=== PATIENT | male | born 1995 | race Two or more races ===

== ENCOUNTER 2019-06-12 22:11 | Emergency (ER) | payer OTHER ==
[~2019-06-12] VITALS: Ht 172.7 cm; Wt 99.8 kg
--- NOTE | 2019-06-12 22:45 | NUR ---
[employer] at bedside.
--- NOTE | 2019-06-13 00:05 | NUR ---
Dr. Barrow at bedside for MSE.
[2019-06-13] MEDS ORDERED: TDAP DIPH,PERTUSS,TET VAC/PF 0.5 ML DISP.SYRIN IM ONE ×2 (00:20→00:30)
--- NOTE | 2019-06-13 00:44 | NUR ---
pt out of er for ct.
[2019-06-13] MEDS ORDERED: IV NS 1000 ML 1,000 ML IV ONE ×2 (00:45→02:15)
--- NOTE | 2019-06-13 01:00 | NUR ---
Pt back to ER from CT.
[2019-06-13] MEDS ORDERED: NEOMY/BACITRA/POLYMYXIN B OINT UD PACKET TP ONE (01:36)
--- NOTE | 2019-06-13 02:43 | NUR ---
Pt discharged to [employer] custody to [employer]ge#[id number]. VSS, no acute signs of distress, all belongings taken, IV site discontinued.
[2019-06-13 02:44] VITALS: BP 130/76
== END 2019-06-13 02:45 ==
LOC: ER 22:14
DX: S00.01XA Abrasion of scalp, initial encounter (principal); S30.1XXA Contusion of abdominal wall, initial encounter; W18.30XA Fall on same level, unspecified, initial encounter; Y93.89 Activity, other specified; Y92.89 Other specified places as the place of occurrence of the external cause; Y99.8 Other external cause status
CPT/HCPCS: 70450; 90715; 93005; A4217; A4663; J7030